=== PATIENT | female | born 2000 | race Two or more races ===

== ENCOUNTER 2025-02-05 11:58 | Emergency (ER) | payer MEDICAID, SELFPAY | END 2025-02-05 14:38 | disposition left against medical advice (07) | LOC: SERX 12:18 | PROVIDERS: Emergency Provider Emergency Medicine | DX: Z53.21 Procedure and treatment not carried out due to patient leaving prior to being seen by health care provider (principal) ==

== ENCOUNTER → 2025-02-08 | Outpatient (CLI) | payer OTHER, SELFPAY ==
--- NOTE | 2025-02-08 16:10 | XR_ITS ---
Examination: Left knee 2 views TECHNIQUE: Supine AP lateral left knee 2 views Standing time: February 08, 2025, 1625 hours INDICATIONS: Running injury 3 days ago with persistent pain. FINDINGS: No fracture or dislocation. No arthritic change. Small knee effusion IMPRESSION: No acute fracture
== END | disposition home or self-care (01) ==
PROVIDERS: Referring Provider Physician Assistant; Visit Provider Physician Assistant
DX: S83.92XA Sprain of unspecified site of left knee, initial encounter (principal); X58.XXXA Exposure to other specified factors, initial encounter
CPT/HCPCS: 73560